=== PATIENT | male | born 2000 ===

== ENCOUNTER 2023-10-02 21:09 | Inpatient (IN) | payer OTHER ==
[~2023-10-02] VITALS: Ht 185.4 cm; Wt 65.1 kg
[2023-10-02] MEDS ORDERED: LAMO-24 PO (21:26)
[2023-10-02] MEDS ORDERED: PALI6TAB15 PO (21:26)
[2023-10-02] MEDS ORDERED: OLAN10TA74 PO (21:26)
[2023-10-02 22:14] LABS: BASOPHILS % (AUTO) 1.1 % (0.0-2.0); HEMATOCRIT 42.5 % (41-53); HEMOGLOBIN 14.4 g/dL (13.5-17.5); LYMPHOCYTES # (AUTO) 1.7 K/uL (1.0-4.8); LYMPHOCYTES % (AUTO) 28.1 % (22.0-44.0); MEAN CORPUSCULAR HEMOGLOBIN 30.7 pg (26.0-34.0); MEAN CORPUSCULAR HGB CONC 33.8 G/dL (31.0-37.0); MEAN CORPUSCULAR VOLUME 91 fL (80-100); MONOCYTES # (AUTO) 0.5 K/uL (0.1-1.0); MONOCYTES % (AUTO) 7.9 % (2.0-9.0); NEUTROPHILS # (AUTO) 3.6 K/uL (1.8-7.7); NEUTROPHILS % (AUTO) 60.9 % (40.0-70.0); PLATELET COUNT (AUTO) 125 K/uL (150-450); RED BLOOD CELL COUNT(AUTO) 4.69 MIL/uL (4.50-5.90); RED CELL DISTRIBUTION WIDTH 13.4 % (11.5-14.5); WHITE BLOOD COUNT (AUTO) 5.9 K/uL (4.5-11.0)
[2023-10-02 22:23] LABS: ANION GAP 10 mmol/L (8-16); CALCIUM, TOTAL 9.6 mg/dL (8.8-10.5); CARBON DIOXIDE 29 mmol/L (22-29); CHLORIDE 104 mmol/L (98-107); CREATININE 1.01 mg/dL (0.60-1.30); GLOMERULAR FILTR. RATE CALC > 60 mL/min (>60); GLUCOSE,RANDOM 108 mg/dL (70-110); POTASSIUM 3.9 mmol/L (3.5-5.1); SODIUM SERUM 143 mmol/L (136-145); UREA NITROGEN, BLOOD 19 mg/dL (7-18)
[2023-10-02 22:30] LABS: ALANINE AMINOTRANSFERASE 17 U/L (12-78); ALBUMIN 4.6 g/dL (3.4-5.0); ALKALINE PHOSPHATASE 55 U/L (46-116); ASPARTATE AMINOTRANSFERASE 21 U/L (15-37); BILIRUBIN,TOTAL 0.7 mg/dL (0.1-1.0); TOTAL PROTEIN, SERUM 7.7 g/dL (6.4-8.2)
[2023-10-02 22:43] LABS: ALCOHOL, BLOOD (SERUM) < 3 mg/dL (0-10)
[2023-10-03] MEDS: LORazepam 2 MG/ML VIAL IM ONE (00:03)
[2023-10-03] MEDS: DiphenhydrAMINE HCL 50 MG/ML VIAL IM ONE (00:04)
[2023-10-03] MEDS: HALOPERIDOL LACTATE 5 MG/ML VIAL IM ONE (00:04)
[2023-10-03 00:57] LABS: COVID AG,FIA SOURCE NASAL SWAB
[2023-10-03 01:16] LABS: SARS-COV2 (COVID) ANTIGEN,FIA Negative (Negative)
[2023-10-03 03:40] LABS: AMPHET/METH SCREEN,URINE NEGATIVE (NEGATIVE); BARBITURATE SCREEN, URINE NEGATIVE (NEGATIVE); BENZODIAZEPINES SCREEN,URINE NEGATIVE (NEGATIVE); CANNABINOID SCREEN,URINE NEGATIVE (NEGATIVE); COCAINE SCREEN,URINE NEGATIVE (NEGATIVE); METHADONE SCREEN, URINE NEGATIVE (NEGATIVE); OPIATE SCREEN,URINE NEGATIVE (NEGATIVE); PHENCYCLIDINE SCREEN,URINE NEGATIVE (NEGATIVE)
[2023-10-03 03:41] LABS: ALCOHOL, URINE DRUG SCREEN NEGATIVE (NEGATIVE)
[2023-10-03 05:42] LABS: APPEARANCE,URINE CLEAR (CLEAR); BILIRUBIN,URINE NEGATIVE (NEGATIVE); COLOR,URINE COLORLESS (YELLOW); GLUCOSE, URINE (UA) NEGATIVE (NEGATIVE); KETONES,URINE NEGATIVE (NEGATIVE); LEUKOCYTE ESTERASE ,URINE NEGATIVE (NEGATIVE); NITRATE,URINE NEGATIVE (NEGATIVE); OCCULT BLOOD,URINE NEGATIVE (NEGATIVE); PROTEIN,URINE NEGATIVE (NEGATIVE); UROBILINOGEN,URINE <=1.0 mg/dL (<=1.0)
[2023-10-03] MEDS: HALOPERIDOL 5 MG TABLET PO PRN (10:06)
[2023-10-03] MEDS: LORazepam 2 MG TABLET PO PRN (10:06)
[2023-10-03] MEDS ORDERED: PNEUMOCOCCAL VACCINE POLYVALENT 0.5 ML SYRINGE [PPSV23] IM. ONE (12:30)
[2023-10-03] MEDS ORDERED: BENZ1TAB84 PO (13:26)
[2023-10-03] MEDS: HydrOXYzine PAMOATE 25 MG CAPSULE PO PRN (16:25)
[2023-10-03] MEDS: PALIPERIDONE 6 MG ER TABLET PO SCH (16:25)
[2023-10-03] MEDS: LamoTRIgine 100 MG TABLET PO SCH (16:25)
[2023-10-03 17:51] VITALS: BP 136/79; PULSE 92; RESP 18; TEMP 97.7; O2SAT 98
[2023-10-03] MEDS: OLANZapine 10 MG TABLET PO SCH (20:11)
[2023-10-03] MEDS ORDERED: CloNIDine HCL 0.1 MG TABLET PO PRN (20:15)
[2023-10-03] MEDS ORDERED: DOCUSATE SODIUM 100 MG CAPSULE PO PRN (20:15)
[2023-10-03] MEDS ORDERED: MAGNESIUM HYDROXIDE SUSPENSION 30 ML UDCUP PO PRN (20:15)
[2023-10-03] MEDS ORDERED: ALBUTEROL SULFATE HFA 90 MCG/PUFF 8 GM INHALER IH PRN (20:15)
[2023-10-03] MEDS ORDERED: GuaiFENesin/D-METHORPHAN [SUGAR-FREE] 200-20MG/10 ML SYRUP UDCUP PO PRN (20:15)
[2023-10-03] MEDS ORDERED: MAG HYDROX/ALUMINUM HYD/SIMETH ES 30 ML SUSPENSION UDCUP PO PRN (20:15)
[2023-10-03] MEDS ORDERED: ONDANSETRON HCL 4 MG TABLET PO PRN (20:15)
[2023-10-03] MEDS ORDERED: PETROLATUM,WHITE 28 GM JELLY TP PRN (20:15)
[2023-10-03] MEDS ORDERED: NICOTINE 14 MG/24 HOUR PATCH TD PRN (20:15)
[2023-10-03] MEDS ORDERED: IBUPROFEN 400 MG TABLET PO PRN (20:15)
[2023-10-03] MEDS ORDERED: ACETAMINOPHEN 325 MG TABLET PO PRN (20:15)
[2023-10-03] MEDS ORDERED: LOPERAMIDE HCL 2 MG CAPSULE PO PRN (20:15)
[2023-10-03] MEDS: ZOLPIDEM TARTRATE 10 MG TABLET PO PRN (20:16)
[2023-10-04 00:36] VITALS: RESP 18
[2023-10-04 08:24] VITALS: BP 116/76; PULSE 97; RESP 17; TEMP 97.8; O2SAT 100
[2023-10-04 20:50] VITALS: BP 110/70; PULSE 93; TEMP 97.5; O2SAT 96
[2023-10-05 08:31] VITALS: BP 108/66; PULSE 67; RESP 17; TEMP 98.4; O2SAT 95
[2023-10-05 08:36] LABS: APPEARANCE,URINE CLEAR (CLEAR); BILIRUBIN,URINE NEGATIVE (NEGATIVE); COLOR,URINE LIGHT YELLOW (YELLOW); GLUCOSE, URINE (UA) NEGATIVE (NEGATIVE); KETONES,URINE NEGATIVE (NEGATIVE); LEUKOCYTE ESTERASE ,URINE NEGATIVE (NEGATIVE); NITRATE,URINE NEGATIVE (NEGATIVE); OCCULT BLOOD,URINE NEGATIVE (NEGATIVE); PROTEIN,URINE NEGATIVE (NEGATIVE); SPECIFIC GRAVITIY, URINE 1.014 (1.003-1.030); UROBILINOGEN,URINE <=1.0 mg/dL (<=1.0)
[2023-10-05 08:52] LABS: ALCOHOL, URINE DRUG SCREEN NEGATIVE (NEGATIVE); AMPHET/METH SCREEN,URINE NEGATIVE (NEGATIVE); BARBITURATE SCREEN, URINE NEGATIVE (NEGATIVE); BENZODIAZEPINES SCREEN,URINE NEGATIVE (NEGATIVE); CANNABINOID SCREEN,URINE NEGATIVE (NEGATIVE); COCAINE SCREEN,URINE NEGATIVE (NEGATIVE); METHADONE SCREEN, URINE NEGATIVE (NEGATIVE); OPIATE SCREEN,URINE NEGATIVE (NEGATIVE); PHENCYCLIDINE SCREEN,URINE NEGATIVE (NEGATIVE)
[2023-10-05 20:47] VITALS: BP 121/78; PULSE 122; TEMP 98; O2SAT 97
[2023-10-06 08:14] VITALS: BP 108/71; PULSE 67; RESP 17; TEMP 97.6; O2SAT 98
[2023-10-06 09:08] LABS: CHOL/HDL RATIO 2.2 (4.2-7.3); FREE T4 (FREE THYROXINE) 1.1 ng/dL (0.76-1.46); THYROID STIMULATING HORMONE 1.08 uIU/mL (0.36-3.74)
[2023-10-06] MEDS: PALIPERIDONE PALMITATE 234 MG/1.5 ML SYRINGE IM ONE (16:57)
[2023-10-06 20:23] VITALS: BP 117/75; PULSE 86; RESP 17; TEMP 97.7; O2SAT 98
[2023-10-07 08:22] VITALS: BP 111/65; PULSE 78; RESP 17; TEMP 98.4; O2SAT 97
[2023-10-07] MEDS ORDERED: PALIPERIDONE 6 MG ER TABLET PO SCH (09:00)
[2023-10-07] MEDS: MULTIVITAMINS WITH MINERALS, THERAPEUTIC TABLET PO SCH (12:36)
[2023-10-07] MEDS: PALIPERIDONE 9 MG ER TABLET PO SCH (12:57)
[2023-10-07 21:27] VITALS: BP 122/74; PULSE 72; RESP 18; TEMP 97.6; O2SAT 80
[2023-10-08 09:20] VITALS: BP 105/65; PULSE 100; RESP 17; TEMP 98; O2SAT 98
[2023-10-08 20:11] VITALS: BP 131/80; PULSE 80; RESP 21; TEMP 97.7; O2SAT 97
[2023-10-09 08:27] VITALS: BP 114/79; PULSE 80; RESP 16; TEMP 98; O2SAT 100
[2023-10-09 21:56] VITALS: BP 133/97; PULSE 97; RESP 18; TEMP 98.9; O2SAT 96
[2023-10-10 08:48] VITALS: BP 121/70; PULSE 81; RESP 18; TEMP 97.6; O2SAT 100
[2023-10-10] MEDS: PALIPERIDONE PALMITATE 156 MG/ML SYRINGE IM ONE (09:47)
[2023-10-10 21:20] VITALS: BP 102/74; PULSE 85; RESP 17; TEMP 98.6; O2SAT 98
[2023-10-11 08:33] VITALS: BP 120/82; PULSE 86; RESP 17; TEMP 97.6; O2SAT 98
[2023-10-11] MEDS ORDERED: PALI9TAB15 PO (09:21)
[2023-10-11] MEDS ORDERED: PALI234D IM (09:22)
[2023-11-07] MEDS ORDERED: PALIPERIDONE PALMITATE 234 MG/1.5 ML SYRINGE IM SCH (09:00)
== END 2023-10-11 10:37 | disposition home or self-care (01) | DRG 885 ==
LOC: EMS 21:13 → B3A 10-03 06:57
PROVIDERS: ADMIT Psychiatry & Neurology Psychiatry; ATTEND Psychiatry & Neurology Psychiatry
PROC: GZHZZZZ Group Psychotherapy (ICD-10-PCS; principal; 2023-10-03)
PROC: GZ56ZZZ Individual Psychotherapy, Supportive (ICD-10-PCS; 2023-10-03)
DX: F20.0 Paranoid schizophrenia (principal); R45.850 Homicidal ideations; G47.00 Insomnia, unspecified; F31.9 Bipolar disorder, unspecified; Z20.822 Contact with and (suspected) exposure to COVID-19; Z78.1 Physical restraint status; Z79.899 Other long term (current) drug therapy; Z91.51 Personal history of suicidal behavior
CPT/HCPCS: 80053; 80061; 80307; 81003; 83036; 84439; 84443; 85025; 87081; 99291; G0480; J1200; J1630; J2060; Q9967